=== PATIENT | female | born 1990 | race Two or more races ===

== ENCOUNTER 2024-05-04 17:04 | Emergency (ER) | payer MEDICAID ==
[~2024-05-04] VITALS: Ht 160 cm; Wt 92.1 kg
[2024-05-04 18:02] LABS: Basophils # (auto) 0 10 ^3/uL (0-0.2); Eosinophils # (auto) 0.2 10 ^3/uL (0-0.8); Mean Corpuscular Volume 75.7 fL (80.0-100.0); Nucleated Red Blood Cells % 0.1 %; Red Cell Distribution Width 15.9 % (11.8-14.3); White Blood Cell 8.3 10^3/uL (4.4-10.8)
[2024-05-04 18:05] LABS: Basophils % (auto) 0.5 % (0.0-2.0); Eosinophils % (auto) 2.3 % (0.0-7.0); Hemoglobin 11.5 g/dL (12.2-16.2); Lymphocytes # (auto) 2.5 10 ^3/uL (0.4-5.4); Lymphocytes % (auto) 29.8 % (10.0-50.0); Mean Corpuscular Hemoglobin 24.8 pg (28.0-32.0); Mean Corpuscular Hgb Conc. 32.8 g/dL (32.0-36.0); Monocytes # (auto) 0.6 10 ^3/uL (0-1.3); Monocytes % (auto) 6.8 % (0.0-12.0); Neutrophils % (auto) 60.6 % (37.0-80.0); Platelet Count (auto) 317 10^3/uL (140-450); Red Blood Cells 4.62 10^6/uL (4.0-5.20)
[2024-05-04 18:12] LABS: Urine Bacteria FEW /hpf (None Seen); Urine Blood Negative /uL (Negative); Urine Clarity Clear (Clear); Urine Color Light-Yellow (Yellow); Urine Protein, UAD Negative (Negative); Urine Specific Gravity 1.025 (1.001-1.035); Urine Urobilinogen Normal (Negative); Urine WBC 1 /hpf (0 - 5); Urine pH 5.5 (5.0-9.0)
[2024-05-04 18:16] LABS: Alanine Aminotransferase 23 U/L (7-40); Albumin 4.3 g/dL (3.2-4.8); Alkaline Phosphatase 90 U/L (46-116); Anion Gap 7 (5-15); Aspartate Aminotransferase 23 U/L (13-40); BUN/Creatinine Ratio 13.7 (10.0-20.0); Blood Urea Nitrogen 10 mg/dL (9-23); Calcium 9.6 mg/dL (8.7-10.4); Carbon Dioxide 23 mmol/L (20-31); Chloride 106 mmol/L (98-107); Glucose 105 mg/dL (74-106); Potassium 3.7 mmol/L (3.5-5.1); Sodium 136 mmol/L (136-145)
[2024-05-04 18:17] LABS: Bilirubin, Total 0.2 mg/dL (0.2-1.0); Total Protein 7.4 g/dL (5.7-8.2)
[2024-05-04 19:59] VITALS: BP 135/78; PULSE 78; RESP 18; TEMP 98.4; O2SAT 99
== END 2024-05-04 20:31 | disposition home or self-care (01) ==
LOC: ER 17:04
DX: O02.1 Missed abortion (principal); N93.8 Other specified abnormal uterine and vaginal bleeding; Z98.890 Other specified postprocedural states
CPT/HCPCS: 36415; 76801; 76817; 80053; 81001; 84702; 85025; 86850; 86900; 86901

== ENCOUNTER 2024-05-19 13:02 | Emergency (ER) | payer MEDICAID ==
[~2024-05-19] VITALS: Ht 160 cm; Wt 94.6 kg
--- NOTE | 2024-05-19 13:27 | ED.PDOC ---
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 Patient reports that she is currently 6 weeks , however, she started to experience vaginal bleeding with associated 7/10 suprapubic pain this morning. Patient relays that she is . Patient denies any vaginal discharge, dysuria, hematuria, dizziness, fever, or chills. Time Seen by MD: 13:23 Reviewed Notes: Nurses Notes, Medications, Allergies Allergies: Coded Allergies: Morphine (Verified Allergy, Unknown, 05/04/24) Information Source: Patient Timing: Hours Prehospital treatment: None Severity: Moderate Vaginal Discharge: None Vaginal Lesions: None Bleeding Quality: Bright Red Sexual Activity: Last Consensual [place]: Unknown Control: None History of: Current Symptoms of Possible : None Associated Signs and Symptoms: Vaginal Bleeding, Abdominal Pain Past Medical History PAST MEDICAL HISTORY: Denies Surgical History: Denies all surgeries SYSTEM SAFETY MANAGER History: No Pertinent SYSTEM SAFETY MANAGER History 3 Para 2 Family History Family History: Reviewed,noncontributory to illness Social History Smoker: Non-Smoker Alcohol: Denies ETOH Use Drugs: Denies Drug Use Lives In: Home Constitutional: denies: chills, diaphoresis, fatigue, fever, malaise, sweats, weakness, others EENTM: denies: blurred vision, double vision, ear bleeding, ear discharge, ear drainage, ear pain, ear ringing, eye pain, eye redness, hearing loss, mouth pain, mouth swelling, nasal discharge, nose bleeding, nose congestion, nose pain, photophobia, tearing, throat pain, throat swelling, voice changes, others Respiratory: denies: cough, hemoptysis, orthopnea, SOB at rest, shortness of breath, SOB with excertion, stridor, wheezing, others Cardiovascular: denies: chest pain, dizzy spells, diaphoresis, Dyspnea on exertion, edema, irregular heart beat, left arm pain, lightheadedness, palpitations, PND, syncope, others Gastrointestinal: reports: abdominal pain; denies: abdomen distended, blood streaked bowels, constipated, diarrhea, dysphagia, difficulty swallowing, hematemesis, melena, nausea, poor appetite, poor fluid intake, rectal bleeding, rectal pain, vomiting, others Genitourinary: reports: abnormal vagina bleeding, ; denies: burning, dyspareunia, dysuria, flank pain, frequency, hematuria, incontinence, pain, vagi na discharge, urgency, others Neurological: denies: dizziness, fainting, headache, left sided numbness, left sided weakness, numbness, paresthesia, pre-existing deficit, right sided numbness, right sided weakness, seizure, speech problems, tingling, tremors, weakness, others Musculoskeletal: denies: back pain, gout, joint pain, joint swelling, muscle pain, muscle stiffness, neck pain, others Integumetry: denies: bruises, change in color, change in hair/nails, dryness, laceration, lesions, lumps, rash, wounds, others Allergic/Immunocompromised: denies: Difficulty Healing, Frequent Infections, Hives, Itching, others Hematologic/Lymphatic: denies: anemia, blood clots, easy bleeding, easy bruising, swollen glands, others Endocrine: denies: excessive hunger, excessive sweating, excessive thirst, excessive urination, flushing, intolerance to cold, intolerance to heat, unexplained weight gain, unexplained weight loss, others Psychiatric: denies: anxiety, bipolar disorder, depression, hopeless, panic disorder, schizophrenia, sleepless, suicidal, others All Other Systems: Reviewed and Negative Physical Exam General Appearance: Moderate Distress, Normal HEENT: Normal ENT Inspection, PERRL/EOMI Neck: Full Range of Motion, Non-Tender, Normal, Normal Inspection Respiratory: Chest Non-Tender, Lungs Clear, No Accessory Muscle Use, No Respiratory Distress, Normal Breath Sounds Cardiovascular: No Edema, No JVD, No Murmur, No Gallop, Normal Peripheral Pulses, Regular Rate/Rhythm Breast Exam: Deferred Gastrointestinal: No Organomegaly, Non Tender, No Pulsatile Mass, Normal Bowel Sounds, Soft Genitalia: Deferred Pelvic: Deferred Rectal: Deferred Extremities: No calf tenderness, Normal capillary refill, Normal inspection, Normal range of motion, Non-tender, No pedal edema Musculoskeletal : Apperance: Normal 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 Was a procedure done?: No Differential Diagnosis (SYSTEM SAFETY MANAGER) Vaginal Bleeding: - Complete, - Incomplete, - Inevitable, - Missed, - Threatened X-Ray, Labs, Meds, VS Vital Signs Date Time Temp Pulse Resp B/P (MAP) Pulse Ox O2 Delivery O2 Flow Rate FiO2 05/19/24 13:29 98.6 98 16 122/74 (90) 99 Lab Test 05/19/24 15:20 05/19/24 13:51 Range/Units Urine Color Colorless Yellow Urine Clarity Clear Clear Urine pH 5.5 5.0-9.0 Urine Specific [place] 1.006 1.001-1.035 Urine Protein Negative Negative Urine Ketones Negative Negative Urine Blood Negative Negative /uL Urine Nitrite Negative Negative Urine Bilirubin Negative Negative Urine Urobilinogen Normal Negative mg/dL Urine Leukocyte Esterase Negative Negative /uL Urine RBC <1 0 - 4 /hpf Urine WBC <1 0 - 5 /hpf Urine Squamous Epithelial Cells Few <5 /hpf Urine Bacteria Few H None Seen /hpf Urine Glucose Normal Normal mg/dL Beta HCG, Quantitative 1296.4 H 1.5-4.2 mIU/mL Patient alert. Complaining of vaginal bleeding. Vitals stable. Answering all questions. She is . three. Explained to the patient. Was told to follow up with her OBGYN. Was told to follow up with her primary care physician. Was told to come back if there is any problem. OB US: Findings: 0.43 cm sonolucent area within the endometrium with questionable yolk sac visualized. No pole is visualized. Uterus measures 8.8 x 5.6 x 5 cm in size. Endometrial thickness of 12 mm. Cervical os appears closed. Right ovary measures 2.8 x 2.5 x 2.2 cm with 1.7 cm hypoechoic lesion. Left ovary measures 2.9 x 2.5 x 1.7 cm. Normal ovarian color Doppler flow bilateral ly. No evidence of free fluid in the cul-de-sac. Impression: Intrauterine 0.43 cm sonolucent area with questionable yolk sac. No pole is visualized. Recommend correlation with beta HCG and serial ultrasound as clinically indicated. 1.7 cm right ovarian hypoechoic region which may represent an endometrioma with other etiologies not excluded. Images Reviewed?: Images reviewed and evaluated by me Time of 1ST Reevaluation: 14:23 Reevaluation 1ST: Unchanged Patient Education/Counseling: Diagnosis, Treatment Family Education/Counseling: No Family Present Departure 1 Departure Time of Disposition: 13:43 Impression: Primary Impression: Vaginal bleeding during Disposition: HOME / SELF CARE / HOMELESS Condition: Good Discharged With: Self Critical Care Note Critical Care Time?: No Stability Stability form required: No Heart Score Heart Score: Heart Score Response (Comments) Value History N/A 0 EKG N/A 0 Age N/A 0 Risk Factors N/A 0 Troponin N/A 0 Total 0 I personally scribed for BISI GARCIA MD ([email or web address]) on 05/19/24 at 13:27. Electronically submitted by Angus Gomes ([email or web address]). I personally scribed for BISI GARCIA MD ([email or web address]) on 05/19/24 at 16:33. Electronically submitted by Angus Gomes ([email or web address]). BISI GARCIA MD May 19, 2024 13:27
--- NOTE | 2024-05-19 15:29 | DVH ---
Procedure: US OB ULTRASOUND COMP LESS 14WKS Study Date and Requested Time: 05/19/2024 02:37 PM Study Description: US OB ULTRASOUND COMP LESS 14WKS History: cramping Comparison: US OB ULTRASOUND COMP LESS 14WKS on DOS: 05/04/24 Technique: Multiple high resolution carter-scale images obtained of the uterus, fetus, and other gestat ional components with M-mode scanning for evaluation of heart rate. Findings: 0.43 cm sonolucent area within the endometrium with questionable yolk sac visualized. No pole i s visualized. Uterus measures 8.8 x 5.6 x 5 cm in size. Endometrial thickness of 12 mm. Cervical os appears closed. Right ovary measures 2.8 x 2.5 x 2.2 cm with 1.7 cm hypoechoic lesion. Left ovary measures 2.9 x 2.5 x 1.7 cm. Normal ovarian color Doppler flow bilaterally. No evidence of free fluid in the cul-de-sac. Impression: Intrauterine 0.43 cm sonolucent area with questionable yolk sac. No pole is visualized. Recomme nd correlation with beta HCG and serial ultrasound as clinically indicated. 1.7 cm right ovarian hypoechoic region which may represent an endometrioma with other etiologies not excluded.
[2024-05-19 15:37] LABS: Urine Bacteria FEW /hpf (None Seen); Urine Blood Negative /uL (Negative); Urine Clarity Clear (Clear); Urine Color Colorless (Yellow); Urine Protein, UAD Negative (Negative); Urine Specific Gravity 1.006 (1.001-1.035); Urine Urobilinogen Normal (Negative); Urine WBC <1 /hpf (0 - 5); Urine pH 5.5 (5.0-9.0)
[2024-05-20 02:22] VITALS: BP 114/64; PULSE 74; RESP 16; TEMP 98.2; O2SAT 100
== END 2024-05-20 02:40 | disposition home or self-care (01) ==
LOC: ER 13:02
DX: O20.9 Hemorrhage in early pregnancy, unspecified (principal); R10.2 Pelvic and perineal pain; Z3A.01 Less than 8 weeks gestation of pregnancy; Z88.5 Allergy status to narcotic agent
CPT/HCPCS: 36415; 76801; 76817; 81001; 84702

== ENCOUNTER 2024-06-16 23:53 | Emergency (ER) | payer MEDICAID ==
[~2024-06-16] VITALS: Ht 160 cm; Wt 93.9 kg
[2024-06-17 00:05] VITALS: BP 125/84; PULSE 111; RESP 18; O2SAT 100
--- NOTE | 2024-06-17 00:33 | ED.PDOC ---
History of Present Illness HPI Comments 33-year-old female who presents to the emergency department with lower abdominal pain that started yesterday. She had a positive test yesterday. Today she started spotting. She states the pain is 7/10, feels like menstrual cramps, worsened when she is working, improved when she is sitting or laying, does not radiate, has been intermittent. She denies associated trauma patient denies any significant past medical history. She is taking vitamins only. She has some nausea without vomiting. She is G3, P2 with no complications during previous pregnancies. Chief Complaint: Abdominal Pain Time Seen by MD: 00:11 Primary Care Provider: NONE Allergies: Coded Allergies: Morphine (Verified Allergy, Unknown, 05/04/24) Home Meds Active Scripts Cephalexin (KEFLEX CAPSULE) 250 Mg Cp, 1 CAP PO QID for 7 Days, #28 CAP Prov:BRYCE YUSUF MD 06/17/24 Mode of Arrival: Ambulatory Review of Systems: REVIEW OF SYSTEMS: No fever, no chills, or fatigue HEENT: No sore throat, no earache, no congestion, no neck pain. Cardiac: No chest pain. No palpitations. Lungs: No shortness of breath, no cough. GI: Nausea, no vomiting, no diarrhea, no constipation, abdominal pain : Positive vaginal bleeding, No dysuria, frequency, or urgency. No hematuria. Musculoskeletal: No joint pain , no joint swelling, no extremity edema. Skin: No rash, no itching. Neuro: No headache, no dizziness, no weakness Vital Signs Vital Signs Date Time Temp Pulse Resp B/P (MAP) Pulse Ox O2 Delivery O2 Flow Rate FiO2 06/17/24 00:05 99.3 111 18 125/84 (98) 100 Physical Exam General: Awake, alert and oriented. No acute distress. Skin: Skin in warm, dry and intact. Appropriate color for ethnicity. Nailbeds pink with no cyanosis. HEENT: The head is normocephalic and atraumatic. Conjunctivae are clear without exudates or hemorrhage. Sclera is non-icteric. EOM are intact. No signs of nystagmus. Eyelids are normal in appearance without swelling or lesions. Oral mucosa is pink and moist Neck: The neck is supple with normal range of motion. No JVD. Cardiac: Heart rate and rhythm are normal. No murmurs, gallops, or rubs are auscultated. Respiratory: No signs of respiratory distress. Lung sounds are clear in all lobes bilaterally without rales, ronchi, or wheezes. Abdominal: Abdomen is soft, positive lower abdominal tenderness-distention. No guarding or rigidity No CVA tenderness Extremities: Upper and lower extremities are atraumatic in appearance without deformity or edema. Neurological: The patient is awake, alert and oriented to person, place, and time with normal speech. Speech is clear. There is no facial asymmetry. Psychiatric: Appropriate mood and affect. Good judgement and insight. No visual or auditory hallucinations. Past Medical History PAST MEDICAL HISTORY: Denies Surgical History: Denies all surgeries AUTOMATION QA TESTER History: No Pertinent AUTOMATION QA TESTER History Family History Family History: Reviewed,noncontributory to illness Social History Smoker: Non-Smoker Alcohol: Denies ETOH Use Drugs: Denies Drug Use Lives In: Home Was a procedure done? Was a procedure done?: No Differential Dx Considerations may include: Differential diagnosis considered include ectopic , spontaneous , urinary tract infection, vaginal infection, normal , pelvic inflammatory disease, ovarian torsion, other, X-Ray, Labs, Meds, VS Vital Signs Date Time Temp Pulse Resp B/P (MAP) Pulse Ox O2 Delivery O2 Flow Rate FiO2 06/17/24 00:05 99.3 111 18 125/84 (98) 100 Lab Test 06/17/24 00:07 Range/Units Urine Color Colorless Yellow Urine Clarity Clear Clear Urine pH 5.0 5.0-9.0 Urine Specific [place] 1.012 1.001-1.035 Urine Protein Negative Negative Urine Ketones Negative Negative Urine Blood Negative Negative /uL Urine Nitrite Negative Negative Urine Bilirubin Negative Negative Urine Urobilinogen Normal Negative mg/dL Urine Leukocyte Esterase 1+ Negative /uL Urine RBC 3 0 - 4 /hpf Urine WBC 5 0 - 5 /hpf Urine Squamous Epithelial Cells Few <5 /hpf Urine Bacteria Few H None Seen /hpf Urine Glucose Normal Normal mg/dL Time of 1ST Reevaluation: 00:29 Reevaluation 1ST: N/A Patient Education/Counseling: Other (Patient eloped) Family Education/Counseling: No Family Present Departure 1 Departure Time of Disposition: 03:00 Impression: Primary Impression: Abdominal pain affecting Additional Impression: Eloped from emergency department Disposition: 07 LEFT AWOL/ELOPED Condition: Stable e-Prescriptions Cephalexin (KEFLEX CAPSULE) 250 Mg Cp 1 CAP PO QID for 7 Days, #28 CAP Prov: BRYCE YUSUF MD 06/17/24 Comments Rxulns-eilom-vegx-old female with pelvic cramping, spotting with a positive home test. She eloped from the emergency department prior to completing workup and re-evaluation. 06/17/24 19:24: Called and left voice mail for patient. Critical Care Note Critical Care Time?: No Stability Stability form required: No BRYCE YUSUF MD Jun 17, 2024 00:33
[2024-06-17 00:36] LABS: Urine Bacteria FEW /hpf (None Seen); Urine Blood Negative /uL (Negative); Urine Clarity Clear (Clear); Urine Color Colorless (Yellow); Urine Protein, UAD Negative (Negative); Urine Specific Gravity 1.012 (1.001-1.035); Urine Urobilinogen Normal (Negative); Urine WBC 5 /hpf (0 - 5)
[2024-06-17] MEDS ORDERED: CEPH250C PO (19:02)
== END 2024-06-17 07:31 | disposition home or self-care (01) ==
LOC: ER 06-17 00:01
DX: O99.619 Diseases of the digestive system complicating pregnancy, unspecified trimester (principal); K92.89 Other specified diseases of the digestive system; Z53.29 Procedure and treatment not carried out because of patient's decision for other reasons
CPT/HCPCS: 81001

== ENCOUNTER 2025-04-08 12:57 | Inpatient (IN) | payer MEDICAID ==
[~2025-04-08] VITALS: Ht 160 cm; Wt 99.4 kg
[~2025-04-08 12:57] MED LIST: CEPH250C PO
--- NOTE | 2025-04-08 13:33 | ECG ---
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
[2025-04-08 14:28] LABS: Urine Protein, UAD 1+ (Negative)
--- NOTE | 2025-04-08 14:31 | DVH ---
LIMITED OB ULTRASOUND > 14 WKS: HISTORY: 23 weeks, abdominal pain TECHNIQUE: Multiple real-time grayscale images of the gravid uterus with duplex Doppler color flow an d M-mode spectral analysis. TRANSDUCER: Transabdominal and transvaginal FINDINGS: IUP single live fetus at 24 weeks 2 days based on composite averages of the BPD, head circumference, abdominal circumference and femur length Estimated weight 624 grams heart rate 162 beats per minute MVP 7.2 cm Cervix measures 3.4 cm. Variable Presentation Posterior Placenta without previa or abruption. IMPRESSION: IUP single live fetus at 24 weeks 2 days AUA corresponding to an MARIEL of 07/27/2025
[2025-04-08 14:32] LABS: Hematocrit 33.6 % (36.0-46.0); Hemoglobin 11.4 g/dL (12.2-16.2); Mean Corpuscular Hemoglobin 28.4 pg (28.0-32.0); Mean Corpuscular Volume 83.8 fL (80.0-100.0); Nucleated Red Blood Cells % 0.0 %
[2025-04-08 14:39] LABS: Alanine Aminotransferase 31 U/L (7-40); Albumin 4.0 g/dL (3.2-4.8); Alkaline Phosphatase 81 U/L (46-116); Anion Gap 13 (5-15); Bilirubin, Total 0.6 mg/dL (0.2-1.0); Calcium 9.2 mg/dL (8.7-10.4); Carbon Dioxide 20 mmol/L (20-31); Chloride 103 mmol/L (98-107); Glucose 81 mg/dL (74-106); Potassium 3.6 mmol/L (3.5-5.1); Total Protein 7.3 g/dL (5.7-8.2)
[2025-04-08 14:42] LABS: BUN/Creatinine Ratio 9.4 (10.0-20.0); Blood Urea Nitrogen < 5 mg/dL (9-23); Magnesium 1.5 mg/dL (1.6-2.6); Sodium 136 mmol/L (136-145)
[2025-04-08 14:42] LABS: Amphetamine Screen, Urine Neg (NEGATIVE); Barbiturate Scree,Urine Neg (NEGATIVE); Benzodiazephine Screen, Urine Neg (NEGATIVE); Opiate Scree,Urine Neg (NEGATIVE); Phencyclidine Screen, Urine Neg (NEGATIVE)
[2025-04-08 14:43] LABS: Thyroid Stimulating Hormone 0.45 uIU/mL (0.55-4.78)
[2025-04-08 14:43] LABS: Cannabinoid Screen, Urine Neg (NEGATIVE); Cocaine Screen, Urine Neg (NEGATIVE)
[2025-04-08 14:54] LABS: Beta HCG, Quantitative 9928.5 mIU/mL (1.5-4.2)
--- NOTE | 2025-04-08 15:05 | ED.PDOC ---
NIGHT TIME BABYSITTER HPI Comments HPI: Siva 34 y.o female presents to the ED for a chief complaint of body chills associated with abdominal and back pain that started this morning. Patient also reports having one episode of vomiting s/p eating described as food particles and denies any hematemesis. Patient is 23 weeks and went to see NIGHT TIME BABYSITTER yesterday which she states having a normal exam. Patient described abdominal pain as a burning sensation that diffuses across abdomen and is constant. 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 She denies any vaginal bleeding, fever, chills, diarrhea. Patient has not taken anything for the pain. She was seen at this ED on 03/25/25 for similar c/o, diagnosed with acute cystitis and prescribed Keflex 250mg BID x 7 days in which she finished course, reporting symptoms then resolved. Initial Vitals BP: 141/78 HR: 141 RR: 19 O2: 97% TRA Temp: 98.5 F Past Medical History: Denies Past Surgical History: Denies Social History: Denies ETOH, smoking, and drug use. Medications: prenatals Allergies: Denies siva: HPI: Poor Historian. REVIEW OF SYSTEMS: CONSTITUTIONAL: Denies acute: fever, diaphoresis, generalized weakness. HEAD: Denies acute: headache, photophobia Eyes: Denies acute: Double vision, vision loss, eye pain, eye discharge. EARS: Denies acute: tinnitus, hearing loss, ear discharge, ear pain, THROAT: Denies acute: sore throat, swelling, difficulty swallowing , pain with swallowing, change in voice. NECK: Denies acute: neck pain, neck swelling, stiff neck. HEART: Denies acute : chest pain, palpitations, LUNGS: Denies acute: SOB, wheezing, cough, hemoptysis ABDOMEN: Denies acute: diarrhea, melena , hematemesis, hematochezia SKIN: Denies acute: rash, redness, lesions, itchiness. EXTREMITIES: Denies acute: calf pain, numbness, tingling, weakness, denies pain in extremity. Denies acute: Low back pain. Neuro: Denies acute: focal neurological deficit, motor or sensory focal neurological deficit, tremors, seizure like activity, confusion, dizziness, change in mental status, loss of bowel or bladder function, cauda equina like symptoms. : Denies acute: dysuria, hematuria, flank pain, increase in urinary frequency. PSYCH: Denies acute: hallucination, suicidal ideation, homicidal ideation. FEMALE: Denies acute: abnormal vaginal bleeding, foul odor, unusual discharge. PHYSICAL EXAM: General: ----mild----acute distress, awake and alert. Head: normocephalic, atraumatic. Neck: supple, trachea is midline, no swelling. Throat: Normal phonation. Eyes:, no erythema, no purulent discharge, no proptosis, no icterus. Heart: regular rate, regular rhythm, no significant murmur appreciated. Lungs: no apparent respiratory distress, Able to speak in full sentences. No wheezing, no rhonchi, no crackles. No stridors Clear to auscultation bilaterally. Abdomen: non tender to palpation, non distended, soft, no guarding, no rebound, + bowel sounds. Neuro: Awake, Alert, oriented to name, self, situation, follows commands GCS=15. Speech is normal. Skin: no petechia, no purpura, no cyanosis, non-pale, not jaundice. Lower extremities: --no - Pitting edema no deformity, no focal swelling, no calf TTP. Makes eye contact. moves all four extremities. Face: no apparent facial droop. Mild right CVA tenderness to percussion Ambulating in the ED independently. ED COURSE: DISCLAIMER: This medical document was created using an electronic medical record system with voice recognition software and computerized dictation system. Although this document has been carefully reviewed, there might still be some phonetic and typographical errors. Occasional wrong-word or "sound-alike" substitutions may have occurred due to the inherent limitations of voice recognition software. These areas are purely typographical due to imperfections of the software programs and do not reflect any compromise in the patient's medical care. Please read the chart carefully and recognize, using context, where these substitutions have occurred. Chief Complaint: Abdominal Pain Time Seen by MD: 14:41 Reviewed Notes: Allergies Allergies: Coded Allergies: Morphine (Verified Allergy, Unknown, 05/04/24) Home Meds Active Scripts Cephalexin (KEFLEX CAPSULE) 250 Mg Cp, 1 CAP PO QID for 7 Days, #28 CAP Prov:MINTAH,CHAILLE A MD 06/17/24 Information Source: Patient Past Medical History PAST MEDICAL HISTORY: Denies Surgical History: Denies all surgeries SIGNALING PROJECT ENGINEER History: No Pertinent SIGNALING PROJECT ENGINEER History Family History Family History: Reviewed,noncontributory to illness Social History Smoker: Non-Smoker Alcohol: Denies ETOH Use Drugs: Denies Drug Use Lives In: Home Physical Exam General Appearance: Other (a) HEENT: Other (a) Neck: Other (a) Respiratory: Other (a) Cardiovascular: Other (a) Breast Exam: Other (a) Gastrointestinal: Other (a) Genitalia: Other (a) Pelvic: Other (a) Rectal: Other (a) Extremities: Other (a) Neurologic: Other Cerebellar Function: Other (a) Reflexes: Other Skin: Other (a) Lymphatic: Other (a) Was a procedure done? Was a procedure done?: No Differential Diagnosis (SIGNALING PROJECT ENGINEER) Vaginal Bleeding: N/A Vaginal Discharge: UTI, Vaginitis - Herpes, Vaginitis - Trichomonas X-Ray, Labs, Meds, VS Vital Signs Date Time Temp Pulse Resp B/P (MAP) Pulse Ox O2 Delivery O2 Flow Rate FiO2 04/08/25 18:25 100.9 04/08/25 17:50 100.9 124 20 116/66 (83) 98 100.9 04/08/25 17:50 124 20 98 Room Air 04/08/25 16:42 99.9 128 20 107/67 (80) 98 99.9 04/08/25 13:18 138 04/08/25 13:08 98.5 141 19 141/78 97 98.5 Lab Test 04/08/25 16:50 04/08/25 14:14 04/08/25 14:08 Range/Units Beta HCG, Quantitative 9524.4 H 9928.5 H 1.5-4.2 mIU/mL White Blood Count 11.6 H 4.4-10.8 10^3/uL Red Blood Count 4.00 4.0-5.20 10^6/uL Hemoglobin 11.4 L 12.2-16.2 g/dL Hematocrit 33.6 L 36.0-46.0 % Mean Corpuscular Volume 83.8 80.0-100.0 fL Mean Corpuscular Hemoglobin 28.4 28.0-32.0 pg Mean Corpuscular Hemoglobin Concent 33.8 32.0-36.0 g/dL Red Cell Distribution Width 14.1 11.8-14.3 % Platelet Count 338 140-450 10^3/uL Mean Platelet Volume 7.5 6.9-10.8 fL Neutrophils (%) (Auto) 86.4 H 37.0-80.0 % Lymphocytes (%) (Auto) 5.0 L 10.0-50.0 % Monocytes (%) (Auto) 8.2 0.0-12.0 % Eosinophils (%) (Auto) 0.1 0.0-7.0 % Basophils (%) (Auto) 0.3 0.0-2.0 % Neutrophils # (Auto) 10.0 H 1.6-8.6 10 ^3/uL Lymphocytes # (Auto) 0.6 0.4-5.4 10 ^3/uL Monocytes # (Auto) 1.0 0-1.3 10 ^3/uL Eosinophils # (Auto) 0 0-0.8 10 ^3/uL Basophils # (Auto) 0 0-0.2 10 ^3/uL Nucleated Red Blood Cells 0.0 % Sodium Level 136 136-145 mmol/L Potassium Level 3.6 3.5-5.1 mmol/L Chloride Level 103 98-107 mmol/L Carbon Dioxide Level 20 20-31 mmol/L Anion Gap 13 5-15 Blood Urea Nitrogen < 5 L 9-23 mg/dL Creatinine 0.53 L 0.550-1.02 mg/dL Glomerular Filtration Rate Calc 124 >90 mL/min BUN/Creatinine Ratio 9.4 L 10.0-20.0 Serum Glucose 81 74-106 mg/dL Calcium Level 9.2 8.7-10.4 mg/dL Magnesium Level 1.5 L 1.6-2.6 mg/dL Total Bilirubin 0.6 0.2-1.0 mg/dL Aspartate Amino Transferase (AST) 18 13-40 U/L Alanine Aminotransferase (ALT) 31 7-40 U/L Alkaline Phosphatase 81 46-116 U/L Total Protein 7.3 5.7-8.2 g/dL Albumin 4.0 3.2-4.8 g/dL Thyroid Stimulating Hormone (TSH) 0.45 L 0.55-4.78 uIU/mL Urine Color Colorless Yellow Urine Clarity Turbid H Clear Urine pH 7.0 5.0-9.0 Urine Specific [place] 1.015 1.001-1.035 Urine Protein 1+ H Negative Urine Ketones Negative Negative Urine Blood Trace H Negative /uL Urine Nitrite 2+ H Negative Urine Bilirubin Negative Negative Urine Urobilinogen Normal Negative mg/dL Urine Leukocyte Esterase 3+ Negative /uL Urine RBC 7 0 - 4 /hpf Urine Microscopic WBC 126 H 0-5 /HPF Urine Squamous Epithelial Cells Few <5 /hpf Urine Bacteria Few H None Seen /hpf Urine Glucose Normal Normal mg/dL Urine Opiates Screen Neg NEGATIVE Urine Fentanyl Screen Neg NEGATIVE Urine Barbiturates Screen Neg NEGATIVE Urine Phencyclidine Screen Neg NEGATIVE Urine Amphetamines Screen Neg NEGATIVE Urine Benzodiazepines Screen Neg NEGATIVE Urine Cocaine Screen Neg NEGATIVE Urine Cannabinoids Screen Neg NEGATIVE Current Medications Medications (Trade) Dose Ordered Sig/Gisela Route Start Time Stop Time Status Last Admin Ceftriaxone Sodium 50 ml @ 100 mls/hr ONCE ONCE IV 04/08/25 14:45 04/08/25 15:14 DC 04/08/25 14:45 Sodium Chloride 1,000 ml @ 1,000 mls/hr Q1H ONCE IV 04/08/25 18:15 04/08/25 19:14 04/08/25 18:08 Acetaminophen (Tylenol Tablet) 650 mg ONCE ONCE PO 04/08/25 18:15 04/08/25 18:16 DC 04/08/25 18:25 [place] [id number] Ph: [phone] DIAGNOSTIC IMAGING Diagnostic Imaging Report : [id number] Signed PATIENT: ETHAN ARAIZA ACCT: [id number] UNIT: [id number] : 1990 LOC: ER ROOM / BED: / AGE / SEX: 34 / F ADM STATUS: REG ER SERVICE 1322 ORDERING PHYSICIAN: ABDI VILLAGRAN DO PROCEDURE(s): OBUS - OB ULTRASOUND COMP GTR 14 WKS REASON: 23 weeks, abdominal pain ORDER NUMBER(s): [id number], ACCESSION NUMBER(s): [id number] LIMITED OB ULTRASOUND > 14 WKS: HISTORY: 23 weeks, abdominal pain TECHNIQUE: Multiple real-time grayscale images of the gravid uterus with duplex Doppler color flow and M-mode spectral analysis. TRANSDUCER: Transabdominal and transvaginal FINDINGS: IUP single live fetus at 24 weeks 2 days based on composite averages of the BPD, head circumference, abdominal circumference and femur length Estimated weight 624 grams heart rate 162 beats per minute MVP 7.2 cm Cervix measures 3.4 cm. Variable Presentation Posterior Placenta without previa or abruption. IMPRESSION: IUP single live fetus at 24 weeks 2 days AUA corresponding to an MARIEL of 07/27/2025 ATED BY: KIRK SULLIVAN MD DICTATED DATE/TIME: 04/08/25 142 SIGNED BY: KIRK SULLIVAN MD SIGNED DATE/TIME: 04/08/25 1429 CC: Time of 1ST Reevaluation: 15:08 Reevaluation 1ST: Unchanged Time of 2ND Reevaluation: 18:09 (The case was discussed with the OB Gyne team team (HPI, physical exam, labs and diagnostic tests that were available at the time of disposition, ED course, treatment plan) on the phone. They agreed with our management and recommend admitting the patient to the medicine team and they will follow in consult drTamy--- dre. ) Patient Education/Counseling: Diagnosis, Treatment Family Education/Counseling: No Family Present Comments MDM: patient presented with the above HPI.--fever flank pain abdominal pain in ----workup was initiated. patient was found with the above mentioned diagnosis. the following medications were ordered: please refer to order lists of meds and tests obtained by myself Dr. Villagran. Patient ED course and VS have been stabilized. Patient has been reassessed in the ED and remained in a stable condition. Pertinent incidental findings were discussed with the patient and/or family. Patient/family voices understanding and is agreeable with plan. Patient has been observed in the ED adequate length of time to insure improvement/stability. Escalation of care considered: Consideration of escalation to observation or admission OB Gyne was consulted. Patient was ADMITTED to the medicine team for further evaluation and treatment of their presentation. All the reports of any imaging studies that were ordered by myself were reviewed by myself. Departure 1 Departure Time of Disposition: 15:14 Impression: Primary Impression: UTI in Additional Impressions: Nausea and vomiting during Thyroid disease Pyelonephritis affecting Disposition: 09 ADMITTED INPATIENT Condition: Stable Additional Instructions: Additional instructions: Please read all instructions provided in this packet carefully. You MUST follow-up with your primary care/family doctor in 1 to 2 days. If you are unable to see your primary care/family doctor, please return to our emergency room for re-assessment and re-evaluation in 1 to 2 days. Return to the emergency room here in our facility or to the nearest ER [facility] if your symptoms change or worsen. CONSULTATIONS: you MUST Follow-up for consultation as soon as possible with: --OB Gyne doctor in 1-2 days. Please call for appointment. You MUST call the consultants office yourself to make an appointment. You may need to arrange that through your insurance and/or your primary/family doctor. If you are unable to see the mobile sales consultant in 1 to 2 days, you must return to our emergency room (or any other ER of your choice) for re-assessment and re- evaluation. Adequate fluid hydration. Although you have been discharged from the Emergency Department, this does not mean that you have a "clean bill of health". No definitive diagnosis for your symptoms has been made today. It is possible that you are in the process of developing a serious illness. This is why you must return to the ED without fail if any new or worsening symptoms develop. Absolute pelvic rest. Avoid NSAIDs. Below is a copy of your radiological report for follow up: [place] [id number] Ph: [phone] DIAGNOSTIC IMAGING Diagnostic Imaging Report : [id number] Signed PATIENT: ETHAN ARAIZA ACCT: [id number] UNIT: [id number] : 1990 LOC: ER ROOM / BED: / AGE / SEX: 34 / F ADM STATUS: REG ER SERVICE 0000 ORDERING PHYSICIAN: ABDI VILLAGRAN DO PROCEDURE(s): OBTVG - OB TRANS VAGINAL US REASON: PAIN ORDER NUMBER(s): [id number], ACCESSION NUMBER(s): [id number] LIMITED OB ULTRASOUND > 14 WKS: HISTORY: 23 weeks, abdominal pain TECHNIQUE: Multiple real-time grayscale images of the gravid uterus with duplex Doppler color flow and M-mode spectral analysis. TRANSDUCER: Transabdominal and transvaginal FINDINGS: IUP single live fetus at 24 weeks 2 days based on composite averages of the BPD, head circumference, abdominal circumference and femur length Estimated weight 624 grams heart rate 162 beats per minute MVP 7.2 cm Cervix measures 3.4 cm. Variable Presentation Posterior Placenta without previa or abruption. IMPRESSION: IUP single live fetus at 24 weeks 2 days AUA corresponding to an MARIEL of 07/27/2025 ATED BY: KIRK SULLIVAN MD DICTATED DATE/TIME: 04/08/25 142 SIGNED BY: KIRK SULLIVAN MD SIGNED DATE/TIME: 04/08/251428 CC: Discharged With: Self Critical Care Note Critical Care Time?: Yes (45 min-critical care time only) Stability Stability form required: No Heart Score Heart Score: Heart Score Response (Comments) Value History N/A 0 EKG N/A 0 Age N/A 0 Risk Factors N/A 0 Troponin N/A 0 Total 0 I personally scribed for ABDI VILLAGRAN DO ([email or web address]) on 04/08/25 at 15:05. Electronically submitted by Teresa Bradley ([facility]). I personally scribed for ABDI VILLAGRAN DO ([email or web address]) on 04/08/25 at 15:08. Electronically submitted by Teresa Bradley ([facility]). I personally scribed for ABDI VILLAGRAN DO ([email or web address]) on 04/08/25 at 15:17. Electronically submitted by Teresa Bradley ([facility]). I personally scribed for ABDI VILLAGRAN J DO ([email or web address]) on 04/08/25 at 17:59. Electronically submitted by Teresa Bradley ([facility]). I personally scribed for ABDI VILLAGRAN DO ([email or web address]) on 04/08/25 at 18:12. Electronically submitted by Teresa Bradley ([facility]). ABDI VILLAGRAN DO Apr 08, 2025 15:05
[2025-04-08] MEDS: SODIUM CHLORIDE 0.9% 500 ML IV ONE (15:30)
[2025-04-08] MEDS: SODIUM CHLORIDE 0.9% 1,000 ML IV ONE (18:08)
[2025-04-08] MEDS: ACETAMINOPHEN 325 MG TAB PO ONE (18:25)
[2025-04-08] MEDS ORDERED: ACETAMINOPHEN 325 MG TAB PO PRN (19:15)
[2025-04-08] MEDS ORDERED: ONDANSETRON HCL 4 MG/2 ML VIAL IV PRN (19:15)
[2025-04-08] MEDS ORDERED: DOCUSATE SOD 100 MG CAP PO PRN (19:15)
--- NOTE | 2025-04-08 19:43 | DVHHP2 ---
History of Present Illness Reason for Visit: UTI in History of Present Illness The patient is a 34-year-old female AB1 who presented to [facility] ED with complaint of abdominal pain. Patient reports she has been experiencing abdominal pain radiating to her back, associated with body chills, nausea, episode of vomiting, getting worse that prompted this visit. Patient was seen at this ED on 03/25/25 for similar complaint, diagnosed with acute cystitis and prescribed Keflex 250mg BID x 7 days in which she finished course, reporting symptoms then resolved. Patient was seen and evaluated in the ED, laboratory data shows WBC 11.6, hemoglobin 11.4, hematocrit 33.6, platelets 338, sodium 136, potassium 3.6, BUN 5, creatinine 0.53, GFR 124, glucose 81, calcium 9.2, magnesium 1.5, TSH 0.45, hCG 9524.4, blood pressure 116/66, heart rate 124, temperature 100.9 F, O2 saturation 98% on room air. Obstetric ultrasound rev ealing IUP single live fetus at 24 weeks 2 days AUA corresponding to an MARIEL of July 27, 2025. Please see medication orders section in the computer. On my assessment, patient denied chest pain, no headache, no dizziness, no diaphoresis, no shortness of breaths, no abdominal pain at this moment, no diarrhea, nausea, vomiting, fever, or chills. Patient was admitted for further evaluation and medical management. Past Medical History Denies past medical history Past Surgical History Denies all surgeries Family History Reviewed, noncontributory to the management of this case. Past Social History The patient lives at home, denies smoking, alcohol or illicit drugs abuse. Review of Systems Constitutional: Yes: Chills; No: Fever, Sweats, Weakness, Malaise, Other Eyes: No: Pain, Vision change, Conjunctivae inflammation, Eyelid inflammation, Other, Redness ENT: No: Ear pain, Ear discharge, Nose pain, Nose discharge, Nose congestion, Mouth pain, Mouth swelling, Throat pain, Throat swelling, Other Respiratory: No: Cough, Dry, Shortness of breath, SOB with excertion, Wheezing, Hemoptysis, Pleuritic Pain, Sputum, Wheezing, Other Cardiovascular: No: Chest Pain, Palpitations, Orthopnea, Paroxysmal Noc. Dyspnea, Edema, Lt Headedness, Other Gastrointestinal: Nausea, Vomiting, Abdominal Pain; No: Diarrhea, Constipation, Melena, Hematochezia, Other Genitourinary: No Dysuria, No Frequency, No Incontinence, No Hematuria, No Retention, No Other Musculoskeletal: No: other, neck pain, shoulder pain, arm pain, back pain, hand pain, leg pain, foot pain Skin: No: Rash, Lesions, Jaundice, Bruising, Other Neurological: No: Weakness, Numbness, Incoordination, Change in speech, Confusion, Seizures, Other Allergies: Coded Allergies: Morphine (Verified Allergy, Unknown, 05/04/24) Medications Current Medications Medications Dose Ordered Sig/Gisela Route Start Time Stop Time Status Last Admin Dose Admin Ceftriaxone Sodium 50 ml @ 100 mls/hr DAILY@09 IV 04/09/25 09:00 UNV Sodium Chloride 1,000 ml @ 60 mls/hr [id number] IV 04/08/25 19:15 Ondansetron HCl 4 mg Q4HP PRN IV 04/08/25 19:15 UNV Docusate Sodium 100 mg BIDPRN PRN PO 04/08/25 19:15 UNV Acetaminophen 650 mg Q6HP PRN PO 04/08/25 19:15 UNV Exam Vital Signs Vital Signs Date Time Temp Pulse Resp B/P (MAP) Pulse Ox O2 Delivery O2 Flow Rate FiO2 04/08/25 19:21 98.6 119 20 122/70 (87) 99 98.6 04/08/25 17:50 Room Air General Appearance: Alert, Oriented X3, Cooperative, No acute distress HEENT: Atraumatic, PERRLA, EOMI, Mucous membr. moist/pink Respiratory: Clear to auscultation, Normal air movement Cardiovascular: Regular rate, Normal S1, Normal S2, No murmurs Abdominal: Normal bowel sounds, Soft, No tenderness, No hepatospenomegaly, No masses Extremities: No clubbing, No cyanosis, No edema, Normal pulses, No tenderness/swelling Skin: No rashes, No breakdown, No significant lesion Neuro: Normal gait, Normal speech, Strength at 5/5 X4 ext, Normal tone, Sensati on intact, Cranial nerves 3-12 NL, Reflexes 2+ Psych/Mental Status: Mental status NL, Mood NL Labs/Xrays Labs Test 04/08/25 16:50 04/08/25 14:14 04/08/25 14:08 Range/Units Beta HCG, Quantitative 9524.4 H 1.5-4.2 mIU/mL White Blood Count 11.6 H 4.4-10.8 10^3/uL Red Blood Count 4.00 4.0-5.20 10^6/uL Hemoglobin 11.4 L 12.2-16.2 g/dL Hematocrit 33.6 L 36.0-46.0 % Mean Corpuscular Volume 83.8 80.0-100.0 fL Mean Corpuscular Hemoglobin 28.4 28.0-32.0 pg Mean Corpuscular Hemoglobin Concent 33.8 32.0-36.0 g/dL Red Cell Distribution Width 14.1 11.8-14.3 % Platelet Count 338 140-450 10^3/uL Mean Platelet Volume 7.5 6.9-10.8 fL Neutrophils (%) (Auto) 86.4 H 37.0-80.0 % Lymphocytes (%) (Auto) 5.0 L 10.0-50.0 % Monocytes (%) (Auto) 8.2 0.0-12.0 % Eosinophils (%) (Auto) 0.1 0.0-7.0 % Basophils (%) (Auto) 0.3 0.0-2.0 % Neutrophils # (Auto) 10.0 H 1.6-8.6 10 ^3/uL Lymphocytes # (Auto) 0.6 0.4-5.4 10 ^3/uL Monocytes # (Auto) 1.0 0-1.3 10 ^3/uL Eosinophils # (Auto) 0 0-0.8 10 ^3/uL Basophils # (Auto) 0 0-0.2 10 ^3/uL Nucleated Red Blood Cells 0.0 % Sodium Level 136 136-145 mmol/L Potassium Level 3.6 3.5-5.1 mmol/L Chloride Level 103 98-107 mmol/L Carbon Dioxide Level 20 20-31 mmol/L Anion Gap 13 5-15 Blood Urea Nitrogen < 5 L 9-23 mg/dL Creatinine 0.53 L 0.550-1.02 mg/dL Glomerular Filtration Rate Calc 124 >90 mL/min BUN/Creatinine Ratio 9.4 L 10.0-20.0 Serum Glucose 81 74-106 mg/dL Calcium Level 9.2 8.7-10.4 mg/dL Magnesium Level 1.5 L 1.6-2.6 mg/dL Total Bilirubin 0.6 0.2-1.0 mg/dL Aspartate Amino Transferase (AST) 18 13-40 U/L Alanine Aminotransferase (ALT) 31 7-40 U/L Alkaline Phosphatase 81 46-116 U/L Total Protein 7.3 5.7-8.2 g/dL Albumin 4.0 3.2-4.8 g/dL Thyroid Stimulating Hormone (TSH) 0.45 L 0.55-4.78 uIU/mL Urine Color Colorless Yellow Urine Clarity Turbid H Clear Urine pH 7.0 5.0-9.0 Urine Specific [place] 1.015 1.001-1.035 Urine Protein 1+ H Negative Urine Ketones Negative Negative Urine Blood Trace H Negative /uL Urine Nitrite 2+ H Negative Urine Bilirubin Negative Negative Urine Urobilinogen Normal Negative mg/dL Urine Leukocyte Esterase 3+ Negative /uL Urine RBC 7 0 - 4 /hpf Urine Microscopic WBC 126 H 0-5 /HPF Urine Squamous Epithelial Cells Few <5 /hpf Urine Bacteria Few H None Seen /hpf Urine Glucose Normal Normal mg/dL Urine Opiates Screen Neg NEGATIVE Urine Fentanyl Screen Neg NEGATIVE Urine Barbiturates Screen Neg NEGATIVE Urine Phencyclidine Screen Neg NEGATIVE Urine Amphetamines Screen Neg NEGATIVE Urine Benzodiazepines Screen Neg NEGATIVE Urine Cocaine Screen Neg NEGATIVE Urine Cannabinoids Screen Neg NEGATIVE PATIENT: ETHAN ARAIZA ACCT: [id number] UNIT: [id number] : 1990 LOC: ER ROOM / BED: / AGE / SEX: 34 / F ADM STATUS: REG ER SERVICE 0000 ORDERING PHYSICIAN: ABDI VILLAGRAN DO PROCEDURE(s): OBTVG - OB TRANS VAGINAL US REASON: PAIN ORDER NUMBER(s): [id number], ACCESSION NUMBER(s): [id number] LIMITED OB ULTRASOUND > 14 WKS: HISTORY: 23 weeks, abdominal pain TECHNIQUE: Multiple real-time grayscale images of the gravid uterus with duplex Doppler color flow and M-mode spectral analysis. TRANSDUCER: Transabdominal and transvaginal FINDINGS: IUP single live fetus at 24 weeks 2 days based on composite averages of the BPD, head circumference, abdominal circumference and femur length Estimated weight 624 grams heart rate 162 beats per minute MVP 7.2 cm Cervix measures 3.4 cm. Variable Presentation Posterior Placenta without previa or abruption. IMPRESSION: IUP single live fetus at 24 weeks 2 days AUA corresponding to an MARIEL of 07/27/2025 ORDERING PHYSICIAN: ABDI VILLAGRAN DO PROCEDURE(s): OBUS - OB ULTRASOUND COMP GTR 14 WKS REASON: 23 weeks, abdominal pain ORDER NUMBER(s): [id number], ACCESSION NUMBER(s): [id number] LIMITED OB ULTRASOUND > 14 WKS: HISTORY: 23 weeks, abdominal pain TECHNIQUE: Multiple real-time grayscale images of the gravid uterus with duplex Doppler color flow and M-mode spectral analysis. TRANSDUCER: Transabdominal and transvaginal FINDINGS: IUP single live fetus at 24 weeks 2 days based on composite averages of the BPD, head circumference, abdominal circumference and femur length Estimated weight 624 grams heart rate 162 beats per minute MVP 7.2 cm Cervix measures 3.4 cm. Variable Presentation Posterior Placenta without previa or abruption. IMPRESSION: IUP single live fetus at 24 weeks 2 days AUA corresponding to an MRAIEL of 07/27/2025 SEPSIS Sepsis Screen Date sepsis recognized/suspect: Apr 08, 2025 Time Sepsis recognized/suspect: 1751 Recent Procedure: No On Antibiotic Therapy: No Respiratory Rate >20: No Heart Rate >90: Yes Temp<36 C (96.8 F) or >38.3 C: Yes SBP <90 or MAP <65 mmHG: No New Acute Mental Status Change: No Is the patient on CPAP, BIPAP,: No Physician Orders Ob Ultrasound Comp Gtr 14 Wks (04/08/25 13:22) Ob Trans Vaginal Us (04/08/25 ) Ceftriaxone 1gm/50ml (Rocephin) (04/09/25 09:00) Allergies (04/08/25 19:04) Code Status (04/08/25 19:04) Sodium Chloride 0.9% (04/08/25 19:15) Oxygen Per Hour (04/08/25 19:04) Ondansetron Hcl (Zofran) (04/08/25 19:15) Docusate Sodium Capsule (Colace Capsule) (04/08/25 19:15) Fall Risk Precautions In Place QSHIFT (04/08/25 19:04) Complete Blood Count (04/09/25 04:00) Comprehensive Metabolic Panel (04/09/25 04:00) Condition: Serious (04/08/25 19:04) Acetaminophen Tablet (Tylenol Tablet) (04/08/25 19:15) Clear Liq Diet (04/09/25 Breakfast) Maintain Bed Rest (04/08/25 19:04) Sequential Compression Device (04/08/25 ) Urine Bacterial Culture (04/08/25 19:04) Free T3 (04/08/25 19:04) Free T4 (Free Thyroxine) (04/08/25 19:04) * Coordinator Of Online Programs Consultation (04/08/25 19:04) Magnesium Sulfate 1gm/100ml (04/08/25 19:30) Vital Signs Date Time Temp Pulse Resp B/P (MAP) Pulse Ox O2 Delivery O2 Flow Rate FiO2 04/08/25 19:21 98.6 119 20 122/70 (87) 99 98.6 04/08/25 19:20 98.6 04/08/25 18:25 100.9 04/08/25 17:50 100.9 124 20 116/66 (83) 98 100.9 04/08/25 17:50 124 20 98 Room Air 04/08/25 16:42 99.9 128 20 107/67 (80) 98 99.9 04/08/25 13:18 138 04/08/25 13:08 98.5 141 19 141/78 97 98.5 Laboratory Tests Test 04/08/25 14:14 White Blood Count 11.6 10^3/uL (4.4-10.8) H Medications Medications Dose Ordered Sig/Gisela Route Start Time Stop Time Status Last Admin Dose Admin Acetaminophen 650 mg ONCE ONCE PO 04/08/25 18:15 04/08/25 18:16 DC 04/08/25 18:25 650 MG Ceftriaxone Sodium 50 ml @ 100 mls/hr ONCE ONCE IV 04/08/25 14:45 04/08/25 15:14 DC 04/08/25 14:45 100 MLS/HR Sodium Chloride 1,000 ml @ 1,000 mls/hr Q1H ONCE IV 04/08/25 18:15 04/08/25 19:14 DC 04/08/25 18:08 1,000 MLS/HR Assessment/Plan Assessment/Plan UTI in Abdominal pain Fever, unspecified Thyroid disease Nausea and vomiting during Pyelonephritis affecting Plan 1. Admit to telemetry unit 2. Breathing treatment 3. Pain control management 4. IV antibiotic management 5. Management of fluids and electrolytes 6. Consultation for OBGYN 7. Diagnostic test obstetric ultrasound 8. DVT prophylaxis on SCDs 9. Repeat labs CBC, CMP in a.m. 10.Home medication reviewed and reconciled 11.Continue with current medical management 12. Treatment plan discussed with patient and RN. Patient verbalized understanding. Plan discussed with: Patient, Other (RN) My Orders Orders - JAD WATKINS DNP Procedure Category Date Status Time Ceftriaxone 1gm/50ml PHA 04/09/25 Logged (Rocephin) 09:00 Allergies CELINA 04/08/25 In Process 19:04 Code Status CODE 04/08/25 Transmitted 19:04 Sodium Chloride 0.9% PHA 04/08/25 In Process 19:15 Oxygen Per Hour RT 04/08/25 Transmitted 19:04 Ondansetron Hcl PHA 04/08/25 Logged (Zofran) 19:15 Docusate Sodium PHA 04/08/25 Logged Capsule (Colace 19:15 Fall Risk Precautions CELINA 04/08/[address] 19:04 Complete Blood Count LAB 04/09/25 Verified 04:00 Comprehensive LAB 04/09/25 Verified Metabolic Panel 04:00 Condition: Serious CELINA 04/08/25 In Process 19:04 Acetaminophen Tablet PHA 04/08/25 Logged (Tylenol Tablet) 19:15 Clear Liq Diet DIET 04/09/25 Transmitted Breakfast Maintain Bed Rest CELINA 04/08/25 In Process 19:04 Sequential CELINA 04/08/25 In Process Compression Device Urine Bacterial KANU 04/08/25 In Process Culture 19:04 Free T3 LAB 04/08/25 In Process 19:04 Free T4 (Free LAB 04/08/25 In Process Thyroxine) 19:04 * Coordinator Of Online Programs Consultation CONS 04/08/25 Transmitted 19:04 Magnesium Sulfate PHA 04/08/25 Logged 1gm/100ml 19:30 Problem List: (1) UTI in (2) Abdominal pain (3) Fever, unspecified (4) Thyroid disease (5) Nausea and vomiting during (6) Pyelonephritis affecting Date of Service: Apr 08, 2025 Billing Provider: JAD WATKINS DNP Common Visit Codes: [id number] INP/OBS CARE (HIGH) JAD WATKINS DNP Apr 08, 2025 19:43
[2025-04-08] MEDS ORDERED: NITROGLYCERIN 0.4 MG SL TAB SL PRN (19:45)
[2025-04-08 20:20] LABS: Free T3 2.48 pg/mL (2.3-4.2); Free T4 (Free Thyroxine) 0.83 ng/dL (0.89-1.76)
[2025-04-08 21:24] VITALS: PULSE 110
[2025-04-08] MEDS: SODIUM CHLORIDE 0.9% 1,000 ML IV SCH (22:11)
[2025-04-08] MEDS: MAGNESIUM SULFATE 1GM/100ML 100 ML IV ONE (22:11)
[2025-04-08 23:15] VITALS: BP 135/80; PULSE 110; RESP 18; TEMP 97.8; O2SAT 99
[2025-04-09] VITALS (8 sets, daily range): BP systolic 112–128; BP diastolic 69–79; PULSE 95–117; RESP 16–98; TEMP 97.9–99.4; O2SAT 97–98
[2025-04-09 05:53] LABS: Hematocrit 29.8 % (36.0-46.0); Hemoglobin 10.1 g/dL (12.2-16.2); Mean Corpuscular Hemoglobin 28.5 pg (28.0-32.0); Mean Corpuscular Volume 84.4 fL (80.0-100.0); Nucleated Red Blood Cells % 0.1 %
[2025-04-09 06:28] LABS: Alanine Aminotransferase 23 U/L (7-40); Albumin 3.5 g/dL (3.2-4.8); Alkaline Phosphatase 72 U/L (46-116); Anion Gap 13 (5-15); Carbon Dioxide 21 mmol/L (20-31); Chloride 102 mmol/L (98-107); Total Protein 6.3 g/dL (5.7-8.2)
[2025-04-09 06:29] LABS: Bilirubin, Total 0.6 mg/dL (0.2-1.0)
[2025-04-09 06:45] LABS: BUN/Creatinine Ratio 10.9 (10.0-20.0); Blood Urea Nitrogen < 5 mg/dL (9-23); Calcium 8.4 mg/dL (8.7-10.4); Glucose 108 mg/dL (74-106); Potassium 3.4 mmol/L (3.5-5.1); Sodium 136 mmol/L (136-145)
[2025-04-09] MEDS: SODIUM CHLORIDE 0.9% 1,000 ML IV SCH (13:00)
--- NOTE | 2025-04-09 13:57 | DVHPN2 ---
Subjective Patient continues to have intermittent nausea and vomiting Reviewed: Care Plan, H&P, Labs, Medications Changes from previous H/P or p: No Changes General: Per HPI Eyes: No Pain, No Vision change, No Conjunctivae inflammation, No Eyelid inflammation, No Other, No Redness ENT: No Ear pain, No Ear discharge, No Nose pain, No Nose discharge, No Nose congestion, No Mouth pain, No Mouth swelling, No Throat pain, No Throat swelling, No Other Cardiovascular: No Chest Pain, No Palpitations, No Orthopnea, No Paroxysmal Noc. Dyspnea, No Edema, No Lt Headedness, No Other Respiratory: No Cough, No Dry, No Shortness of breath, No SOB with excertion, No Wheezing, No Hemoptysis, No Pleuritic Pain, No Sputum, No Other Gastrointestinal: Nausea, Vomiting, Abdominal Pain; No Diarrhea, No Constipation, No Melena, No Hematochezia, No Other Genitourinary: No Dysuria, No Frequency, No Incontinence, No Hematuria, No Retention, No Other Musculoskeletal: No other, No neck pain, No shoulder pain, No arm pain, No back pain, No hand pain, No leg pain, No foot pain Skin: No Rash, No Lesions, No Jaundice, No Bruising, No Other Objective Vitals Vital Signs Date Time Temp Pulse Resp B/P (MAP) Pulse Ox O2 Delivery O2 Flow Rate FiO2 04/09/25 12:55 98.7 109 20 128/79 (95) 98 98.7 04/09/25 08:00 Room Air* 0 21 Intake/Output Intake and Output 04/09/25 07:00 Intake Total 300 ml Balance 300 ml Intake Oral 300 ml # Voids 2 General Appearance: Alert, Oriented X3, Cooperative, mild distress HEENT: Atraumatic, PERRLA Lungs: Clear to auscultation, Normal air movement Cardiovascular: Normal S1, Normal S2 Abdomen: Normal bowel sounds, Soft, No tenderness Musculoskeletal: Normal sensory function, Normal motor function Skin: Dry, Intact Psych/Mental Status: Mental status NL, Mood NL Medications Current Medications Medications Dose Ordered Sig/Gisela Route Start Time Stop Time Status Last Admin Dose Admin Ceftriaxone Sodium 50 ml @ 100 mls/hr DAILY@09 IV 04/09/25 09:00 04/09/25 09:06 100 MLS/HR Ondansetron HCl 4 mg Q4HP PRN IV 04/08/25 19:15 Docusate Sodium 100 mg BIDPRN PRN PO 04/08/25 19:15 Acetaminophen 650 mg Q6HP PRN PO 04/08/25 19:15 Nitroglycerin 0.4 mg Q5MINP PRN SL 04/08/25 19:45 Laboratory Results Laboratory Tests 04/09/25 05:30 Chemistry Test 04/08/25 14:14 04/09/25 05:30 Albumin 4.0 g/dL (3.2-4.8) 3.5 g/dL (3.2-4.8) Calcium Level 9.2 mg/dL (8.7-10.4) 8.4 mg/dL (8.7-10.4) L Magnesium Level 1.5 mg/dL (1.6-2.6) L Total Protein 7.3 g/dL (5.7-8.2) 6.3 g/dL (5.7-8.2) LFT Test 04/08/25 14:14 04/09/25 05:30 Alanine Aminotransferase (ALT) 31 U/L (7-40) 23 U/L (7-40) Alkaline Phosphatase 81 U/L (46-116) 72 U/L (46-116) Aspartate Amino Transferase (AST) 18 U/L (13-40) 17 U/L (13-40) Total Bilirubin 0.6 mg/dL (0.2-1.0) 0.6 mg/dL (0.2-1.0) HgA1c, TSH Test 04/08/25 14:14 Thyroid Stimulating Hormone (TSH) 0.45 uIU/mL (0.55-4.78) L Urinalysis Test 04/08/25 14:08 Urine Color Colorless (Yellow) Urine Clarity Turbid (Clear) H Urine pH 7.0 (5.0-9.0) Urine Specific [place] 1.015 (1.001-1.035) Urine Protein 1+ (Negative) H Urine Ketones Negative (Negative) Urine Blood Trace /uL (Negative) H Urine Nitrite 2+ (Negative) H Urine Bilirubin Negative (Negative) Urine Urobilinogen Normal mg/dL (Negative) Urine Leukocyte Esterase 3+ /uL (Negative) Urine RBC 7 /hpf (0 - 4) Urine Microscopic WBC 126 /HPF (0-5) H Urine Squamous Epithelial Cells Few /hpf (<5) Urine Bacteria Few /hpf (None Seen) H Urine Glucose Normal mg/dL (Normal) Microbiology Microbiology Date/Time Source Procedure Growth Status 04/08/25 14:08 Voided Urine Urine Culture - Preliminary Resulted Labs and/or images reviewed: Labs reviewed by me, Image(s) reviewed by me Assessment/Plan Assessment/Plan Impression: -complicated cystitis with failure of oral antibiotics -sepsis - at 24 weeks gestation -obesity -hypokalemia -diarrhea Plan: -repeat urine culture given 1st culture was contaminated -patient continues to be tachycardic, continue IV fluids with potassium replacement -continue IV Rocephin -add Florastor - heart tones Q shift -OBGYN consultation -antiemetics -repeat labs in a.m. Total time spent with patient discussing and formulating plan of care: 35 minutes. This medical document was created using an electronic medical record system with [employer] dictation system. Although this document has been carefully reviewed, there may still be some phonetic and typographical errors. These areas are purely typographical due to imperfections of the software programs, and do not reflect any compromise in the patient's medical care. Plan discussed with: Patient, Other (RN) My Orders Orders - LIZET VILLAFANA NP Procedure Category Date Status Time Sod Chl 0.9%/ Kcl PHA 04/09/25 In Process 40meq 13:45 Basic Metabolic Panel LAB 04/10/25 Verified 04:00 Urine Bacterial KANU 04/09/25 Uncollected Culture 13:53 Date of Service: Apr 09, 2025 Billing Provider: LIZET VILLAFANA NP Common Visit Codes: [id number] INP/OBS CARE(HIGH) LIZET VILLAFANA NP Apr 09, 2025 13:57
[2025-04-09] MEDS: FLORASTOR (S. BOULARDII) 250 MG CAP PO SCH (14:55)
[2025-04-09] MEDS: SOD CHL 0.9%/ KCL 40MEQ 1,000 ML IV ONE (14:55)
[2025-04-09 20:42] LABS: Urine Protein, UAD Negative (Negative)
[2025-04-10 01:00] VITALS: BP 122/75; PULSE 99; RESP 16; TEMP 98.1; O2SAT 100
[2025-04-10 05:00] VITALS: BP 104/62; PULSE 91; RESP 16; TEMP 98; O2SAT 99
[2025-04-10 07:02] LABS: Anion Gap 12 (5-15); Carbon Dioxide 21 mmol/L (20-31); Chloride 104 mmol/L (98-107); Sodium 137 mmol/L (136-145)
[2025-04-10 07:08] LABS: Glucose 83 mg/dL (74-106)
[2025-04-10 07:11] LABS: BUN/Creatinine Ratio 11.4 (10.0-20.0); Blood Urea Nitrogen < 5 mg/dL (9-23); Calcium 8.6 mg/dL (8.7-10.4); Potassium 3.4 mmol/L (3.5-5.1)
[2025-04-10] MEDS: POTASSIUM CHLORIDE 40 MEQ, LIDOCAINE 1% (LOCAL ANESTH.) 4 ML in SODIUM CHL 0.9% 250 ML IV ONE (07:30)
[2025-04-10 08:00] VITALS: PULSE 91; RESP 18; O2SAT 98
[2025-04-10 09:00] VITALS: BP 116/80; PULSE 91; RESP 20; TEMP 98; O2SAT 97
--- NOTE | 2025-04-10 09:03 | DVHINCON2 ---
Date of service: Apr 09, 2025 Referring Physician HOSPITALIST Reason for Consultation PYELO AND PREG History of Present Illness PT IS ADMITTED FOR PYELONEPHRITIS ,PT HAD RECENT UTI BUT SHE PRESENTED WITH FLANK PAIIN . PT DENIES UCS,ROM OR VAG BLEEING Past Medical History NONE Past Surgical History CSX2,CHOLECYSTECTOMY Family History NA Social History 2CS,ONE SAB Patient Family History: Patient reports no known family medical history. Allergies: Coded Allergies: Morphine (Verified Allergy, Unknown, 05/04/24) Home Meds Active Scripts Cephalexin (KEFLEX CAPSULE) 250 Mg Cp, 1 CAP PO QID for 7 Days, #28 CAP Prov:BRYCE YUSUF MD 06/17/24 Current Medications Current Medications Medications (Trade) Dose Ordered Sig/Gisela Route PRN Reason Start Time Stop Time Status Last Admin Ceftriaxone Sodium 50 ml @ 100 mls/hr DAILY@09 IV 04/09/25 09:00 04/09/25 09:06 Sodium Chloride 1,000 ml @ 100 mls/hr Q10H IV 04/09/25 12:30 04/09/25 13:42 DC 04/09/25 13:00 Saccharomyces Boulardii (Florastor) 250 mg DAILY PO 04/09/25 14:00 04/09/25 14:55 Review of Systems Constitutional: POS fever AND chill, NO weight loss HEENT: no eye pain, no hearing loss, no oral lesion, no scleral icterus Heart: no chest pain, no chest pressure Lung: no cough, no dyspnea with exertion Abdomen: see HPI : POS FOR pain with urination, normal appearing urine Musculoskeletal: no joint pain, no muscle pain Neurological: no seizure, no loss of sensation, no weakness in extremities Pysch: no depression, no anxiety Derm: no rash, no jaundice Vital Signs Vital Signs Date Time Temp Pulse Resp B/P (MAP) Pulse Ox O2 Delivery O2 Flow Rate FiO2 04/10/25 05:00 98.0 91 16 104/62 (76) 99 98.0 04/09/25 20:00 Room Air* 0 21 Physical Exam SKIN: NL HEENT: NL NECK: NL CARDIAC: RRR PULMONARY: CTA ABDOMEN: SOFT,POS FH,GRAVID ,24 WKS MUSCULOSKELETAL: POS CVA TENDERNESS EXT - NOCCE Labs/Diagnostic Data Labs Test 04/10/25 05:18 04/09/25 14:47 10/4/25 05:30 04/08/25 16:50 Range/Units Sodium Level 137 136-145 mmol/L Potassium Level 3.4 L 3.5-5.1 mmol/L Chloride Level 104 98-107 mmol/L Carbon Dioxide Level 21 20-31 mmol/L Anion Gap 12 5-15 Blood Urea Nitrogen < 5 L 9-23 mg/dL Creatinine 0.44 L 0.550-1.02 mg/dL Glomerular Filtration Rate Calc 130 >90 mL/min BUN/Creatinine Ratio 11.4 10.0-20.0 Serum Glucose 83 74-106 mg/dL Calcium Level 8.6 L 8.7-10.4 mg/dL Urine Color Colorless Yellow Urine Clarity Clear Clear Urine pH 7.5 5.0-9.0 Urine Specific [place] 1.006 1.001-1.035 Urine Protein Negative Negative Urine Ketones Negative Negative Urine Blood Negative Negative /uL Urine Nitrite Negative Negative Urine Bilirubin Negative Negative Urine Urobilinogen Normal Negative mg/dL Urine Leukocyte Esterase Negative Negative /uL Urine RBC None seen 0 - 4 /hpf Urine Microscopic WBC 2 0-5 /HPF Urine Squamous Epithelial Cells Few <5 /hpf Urine Bacteria Few H None Seen /hpf Urine Glucose Normal Normal mg/dL White Blood Count 9.7 4.4-10.8 10^3/uL Red Blood Count 3.53 L 4.0-5.20 10^6/uL Hemoglobin 10.1 L 12.2-16.2 g/dL Hematocrit 29.8 #L 36.0-46.0 % Mean Corpuscular Volume 84.4 80.0-100.0 fL Mean Corpuscular Hemoglobin 28.5 28.0-32.0 pg Mean Corpuscular Hemoglobin Concent 33.8 32.0-36.0 g/dL Red Cell Distribution Width 14.5 H 11.8-14.3 % Platelet Count 295 140-450 10^3/uL Mean Platelet Volume 7.6 6.9-10.8 fL Neutrophils (%) (Auto) 82.8 H 37.0-80.0 % Lymphocytes (%) (Auto) 7.2 L 10.0-50.0 % Monocytes (%) (Auto) 9.7 0.0-12.0 % Eosinophils (%) (Auto) 0.1 0.0-7.0 % Basophils (%) (Auto) 0.2 0.0-2.0 % Neutrophils # (Auto) 8.1 1.6-8.6 10 ^3/uL Lymphocytes # (Auto) 0.7 0.4-5.4 10 ^3/uL Monocytes # (Auto) 0.9 0-1.3 10 ^3/uL Eosinophils # (Auto) 0 0-0.8 10 ^3/uL Basophils # (Auto) 0 0-0.2 10 ^3/uL Nucleated Red Blood Cells 0.1 % Total Bilirubin 0.6 0.2-1.0 mg/dL Aspartate Amino Transferase (AST) 17 13-40 U/L Alanine Aminotransferase (ALT) 23 7-40 U/L Alkaline Phosphatase 72 46-116 U/L Total Protein 6.3 5.7-8.2 g/dL Albumin 3.5 3.2-4.8 g/dL Beta HCG, Quantitative 9524.4 H 1.5-4.2 mIU/mL Test 04/08/25 14:14 04/08/25 14:08 Range/Units Magnesium Level 1.5 L 1.6-2.6 mg/dL Thyroid Stimulating Hormone (TSH) 0.45 L 0.55-4.78 uIU/mL Free Thyroxine (T4) Calculated 0.83 L 0.89-1.76 ng/dL Free Triiodothyronine (T3) pg/mL 2.48 2.3-4.2 pg/mL Urine Opiates Screen Neg NEGATIVE Urine Fentanyl Screen Neg NEGATIVE Urine Barbiturates Screen Neg NEGATIVE Urine Phencyclidine Screen Neg NEGATIVE Urine Amphetamines Screen Neg NEGATIVE Urine Benzodiazepines Screen Neg NEGATIVE Urine Cocaine Screen Neg NEGATIVE Urine Cannabinoids Screen Neg NEGATIVE Microbiology Date/Time Source Procedure Growth Status 04/08/25 14:08 Voided Urine Urine Culture - Preliminary Resulted Primary Diagnosis PYELONEPHRITS IUP AT 23 WKS HX OF CSX2 Plan PT IS ON ABX AND IVF MAY DC HOME ON MACROBID FU WITH ME SCHED Plan discussed with: Patient Visit Coding OBGYN Date of Service: Apr 09, 2025 Billing Provider: SAL VIRGEN DO COMPENSATION PROGRAMS MANAGER Common Visit Codes: [id number] INP/OBS CARE(HIGH) COMPENSATION PROGRAMS MANAGER Consultation Codes: [id number] CONSULT <110MIN SAL VIRGEN DO Apr 10, 2025 09:03
--- NOTE | 2025-04-10 09:06 | DVHPN2 ---
Chief Complaints Patient reports: No new complaints, Feels better Nursing reports: No new complaints Objective Vitals Vital Signs Date Time Temp Pulse Resp B/P (MAP) Pulse Ox O2 Delivery O2 Flow Rate FiO2 04/10/25 05:00 98.0 91 16 104/62 (76) 99 98.0 04/09/25 20:00 Room Air* 0 21 Medications Current Medications Medications (Trade) Dose Ordered Sig/Gisela Route PRN Reason Start Time Stop Time Status Last Admin Saccharomyces Boulardii (Florastor) 250 mg DAILY PO 04/09/25 14:00 04/09/25 14:55 Lungs: Normal Cardiovascular: Normal Abdominal: Soft Extremities: Normal Studies Laboratory Tests 04/10/25 05:18 04/09/25 05:30 Test 04/10/25 05:18 Range/Units Serum Glucose 83 74-106 mg/dL Ass/Plan Assessment PYELO RESOLVED IUP AT PREG 23 WKS Plan MAY DC HOME ON MACROBID 100MG ONE BID [id number] Visit Coding OBGYN Date of Service: Apr 10, 2025 Billing Provider: SAL VIRGEN DO DIE TRY OUT WORKER Common Visit Codes: [id number] INP/OBS CARE(HIGH) SAL VIRGEN DO Apr 10, 2025 09:06
[2025-04-10] MEDS: POTASSIUM EFFERVESENT TAB 25 MEQ PO ONE (10:46)
[2025-04-10 13:00] VITALS: BP 114/75; PULSE 99; RESP 16; TEMP 98.2; O2SAT 97
[2025-04-10] MEDS ORDERED: NITR-87 PO (13:00)
--- NOTE | 2025-04-10 13:00 | DVHDS2 ---
Discharge Summary Date of Admission Apr 08, 2025 at 19:42 Date of Discharge: Apr 10, 2025 Admitting Diagnosis UTI and Labs/Diagnostic Data: Laboratory Results Test 04/10/25 05:18 04/09/25 14:47 04/09/25 05:30 04/08/25 16:50 Sodium Level 137 mmol/L (136-145) Potassium Level 3.4 mmol/L (3.5-5.1) Chloride Level 104 mmol/L (98-107) Carbon Dioxide Level 21 mmol/L (20-31) Anion Gap 12 (5-15) Blood Urea Nitrogen < 5 mg/dL (9-23) Creatinine 0.44 mg/dL (0.550-1.02) Glomerular Filtration Rate Calc 130 mL/min (>90) BUN/Creatinine Ratio 11.4 (10.0-20.0) Serum Glucose 83 mg/dL (74-106) Calcium Level 8.6 mg/dL (8.7-10.4) Urine Color Colorless (Yellow) Urine Clarity Clear (Clear) Urine pH 7.5 (5.0-9.0) Urine Specific [place] 1.006 (1.001-1.035) Urine Protein Negative (Negative) Urine Ketones Negative (Negative) Urine Blood Negative /uL (Negative) Urine Nitrite Negative (Negative) Urine Bilirubin Negative (Negative) Urine Urobilinogen Normal mg/dL (Negative) Urine Leukocyte Esterase Negative /uL (Negative) Urine RBC None seen /hpf (0 - 4) Urine Microscopic WBC 2 /HPF (0-5) Urine Squamous Epithelial Cells Few /hpf (<5) Urine Bacteria Few /hpf (None Seen) Urine Glucose Normal mg/dL (Normal) White Blood Count 9.7 10^3/uL (4.4-10.8) Red Blood Count 3.53 10^6/uL (4.0-5.20) Hemoglobin 10.1 g/dL (12.2-16.2) Hematocrit 29.8 % (36.0-46.0) Mean Corpuscular Volume 84.4 fL (80.0-100.0) Mean Corpuscular Hemoglobin 28.5 pg (28.0-32.0) Mean Corpuscular Hemoglobin Concent 33.8 g/dL (32.0-36.0) Red Cell Distribution Width 14.5 % (11.8-14.3) Platelet Count 295 10^3/uL (140-450) Mean Platelet Volume 7.6 fL (6.9-10.8) Neutrophils (%) (Auto) 82.8 % (37.0-80.0) Lymphocytes (%) (Auto) 7.2 % (10.0-50.0) Monocytes (%) (Auto) 9.7 % (0.0-12.0) Eosinophils (%) (Auto) 0.1 % (0.0-7.0) Basophils (%) (Auto) 0.2 % (0.0-2.0) Neutrophils # (Auto) 8.1 10 ^3/uL (1.6-8.6) Lymphocytes # (Auto) 0.7 10 ^3/uL (0.4-5.4) Monocytes # (Auto) 0.9 10 ^3/uL (0-1.3) Eosinophils # (Auto) 0 10 ^3/uL (0-0.8) Basophils # (Auto) 0 10 ^3/uL (0-0.2) Nucleated Red Blood Cells 0.1 % Total Bilirubin 0.6 mg/dL (0.2-1.0) Aspartate Amino Transferase (AST) 17 U/L (13-40) Alanine Aminotransferase (ALT) 23 U/L (7-40) Alkaline Phosphatase 72 U/L (46-116) Total Protein 6.3 g/dL (5.7-8.2) Albumin 3.5 g/dL (3.2-4.8) Beta HCG, Quantitative 9524.4 mIU/mL (1.5-4.2) Test 04/08/25 14:14 04/08/25 14:08 Magnesium Level 1.5 mg/dL (1.6-2.6) Thyroid Stimulating Hormone (TSH) 0.45 uIU/mL (0.55-4.78) Free Thyroxine (T4) Calculated 0.83 ng/dL (0.89-1.76) Free Triiodothyronine (T3) pg/mL 2.48 pg/mL (2.3-4.2) Urine Opiates Screen Neg (NEGATIVE) Urine Fentanyl Screen Neg (NEGATIVE) Urine Barbiturates Screen Neg (NEGATIVE) Urine Phencyclidine Screen Neg (NEGATIVE) Urine Amphetamines Screen Neg (NEGATIVE) Urine Benzodiazepines Screen Neg (NEGATIVE) Urine Cocaine Screen Neg (NEGATIVE) Urine Cannabinoids Screen Neg (NEGATIVE) Other Laboratory Tests 04/10/25 05:18 04/09/25 05:30 Brief Hx & Hospital Course: History of Present Illness The patient is a 34-year-old female AB1 who presented to [facility] ED with complaint of abdominal pain. Patient reports she has been experiencing abdominal pain radiating to her back, associated with body chills, nausea, episode of vomiting, getting worse that prompted this visit. Patient was seen at this ED on 03/25/25 for similar complaint, diagnosed with acute cystitis and prescribed Keflex 250mg BID x 7 days in which she finished course, reporting symptoms then resolved. Patient was seen and evaluated in the ED, laboratory data shows WBC 11.6, hemoglobin 11.4, hematocrit 33.6, platelets 338, sodium 136, potassium 3.6, BUN 5, creatinine 0.53, GFR 124, glucose 81, calcium 9.2, magnesium 1.5, TSH 0.45, hCG 9524.4, blood pressure 116/66, heart rate 124, temperature 100.9 F, O2 saturation 98% on room air. Obstetric ultrasound revealing IUP single live fetus at 24 weeks 2 days AUA corresponding to an MARIEL of July 27, 2025. Please see medication orders section in the computer. On my assessment, patient denied chest pain, no headache, no dizziness, no diaphoresis, no shortness of breaths, no abdominal pain at this moment, no diarrhea, nausea, vomiting, fever, or chills. Patient was admitted for further evaluation and medical management. Course of hospitalization: Patient was started on IV Rocephin, treated with IV hydration as well as potassium replacement. OBGYN consultation was obtained. Patient is now tolerating oral intake without any more nausea and vomiting. Patient will be discharged home on Macrobid 100 mg p.o. b.i.d. times 10 days. She has been established appointment this coming with her OB doctor. Questions answered. Physical examination General: Alert and Oriented x3. No acute distress. Well-nourished. Eyes: EOMI. Anicteric. HENT: Moist mucous membranes. Lungs: Clear to auscultation bilaterally. No accessory muscle use. Cardiovascular: Regular rate and rhythm. No murmur. No JVD. Abdomen: Soft, non-tender and non-distended. No palpable masses. Extremities: No edema. Non-tender. Skin: No rashes or lesions. Warm. Neurologic: No focal neurological deficits. CN II-XII grossly intact, but not individually tested. Psychiatric: Cooperative. Appropriate mood and affect. Total time spent with patient discussing and formulating plan of care: 35 minutes. This medical document was created using an electronic medical record system with [employer] dictation system. Although this document has been carefully reviewed, there may still be some phonetic and typographical errors. These areas are purely typographical due to imperfections of the software programs, and do not reflect any compromise in the patient's medical care. Condition at Discharge: Fair Final Diagnosis/Problems List Complicated Cystitis in setting of Impression: -complicated cystitis with failure of oral antibiotics -sepsis - at 24 weeks gestation -obesity -hypokalemia -diarrhea Discharge Disposition: Home Discharge Instruct/Medications Diet: Regular Activity: No Restrictions, As Tolerated Follow Up/Referral: Follow up with established OBGYN appointment this coming Medications: Macrobid 100 mg p.o. b.i.d. times 10 days Scheduled Cephalexin (Keflex Capsule), 1 CAP PO QID 36 Discharge Statement: "Patient was advised to return to the ER or call 911 if any headaches, dizziness, shortness of breath, chest pain, abdominal pain, bleeding, fevers, or worsening of medical condition. Patient was counseled about treatment plan, medications, possible side effects, patientverbalized understanding. All questions were answered to the best of my ability. This discharge took greater then 30 minutes in planning, reviewing documentation, counseling the patient, and discussing with other team members." ASSESSMENT ASSESSMENT Assessment Complicated Cystitis in setting of Date of Service: Apr 10, 2025 Billing Provider: LIZET VILLAFANA NP Common Visit Codes: 89542-UAH/OBS DISCH DAY >30min LIZET VILLAFANA NP Apr 10, 2025 13:00
== END 2025-04-10 14:46 | disposition home or self-care (01) | DRG 566 ==
LOC: ER 12:57 → OVERFLOW 19:42 → TELE-WESTW 21:13
PROVIDERS: ADMIT Nurse Practitioner Family; ATTEND Nurse Practitioner Family
DX: O98.812 Other maternal infectious and parasitic diseases complicating pregnancy, second trimester (principal); A41.9 Sepsis, unspecified organism; O23.02 Infections of kidney in pregnancy, second trimester; E07.9 Disorder of thyroid, unspecified; E87.6 Hypokalemia; O99.212 Obesity complicating pregnancy, second trimester; O99.282 Endocrine, nutritional and metabolic diseases complicating pregnancy, second trimester; O23.12 Infections of bladder in pregnancy, second trimester; N30.00 Acute cystitis without hematuria; Z88.5 Allergy status to narcotic agent; Z3A.24 24 weeks gestation of pregnancy
CPT/HCPCS: 36415; 76805; 76817; 80048; 80053; 80307; 81001; 83735; 84439; 84443; 84481; 84702; 85025; 87086; 93005; 99291; G0378; J2003

== ENCOUNTER 2025-05-31 08:57 | Observation (INO) | payer MEDICAID ==
[~2025-05-31 08:57] MED LIST changes: +NITR-87 PO
[2025-05-31] MEDS ORDERED: NITR-52 PO (10:03)
[2025-05-31] MEDS ORDERED: PREN-96 PO (10:04)
--- NOTE | 2025-05-31 10:19 | DVHDS2 ---
Physician Discharge Progress N Final Diagnosis: uti,vag bleeding 30wks Operations or Procedures: Operations or Procedures nst reactive reviwed,sono Condition on Discharge: Good Disposition: Home Discharge Instructions: Diet: Regular Activity: Light activity Medications: macrobid Follow Up Care: Specialist: 1w Discharge Statement: "Patient was advised to return to the ER or call 911 if any headaches, dizziness, shortness of breath, chest pain, abdominal pain, bleeding, fevers, or worsening of medical condition. Patient was counseled about treatment plan, medications, possible side effects, patientverbalized understanding. All questions were answered to the best of my ability. This discharge took greater then 30 minutes in planning, reviewing docume ntation, counseling the patient, and discussing with other team members." Visit Coding OBGYN Date of Service: May 31, 2025 Billing Provider: SAL VIRGEN DO [employer]ACITY PLANNING MANAGER Common Visit Codes: 32407-GBCQYBD OBS CARE (HIGH) CAPACITY PLANNING MANAGER Procedure Codes: 08363-79- NON-STRESS TEST SAL VIRGEN DO May 31, 2025 10:19
--- NOTE | 2025-05-31 10:52 | DVH ---
LIMITED OB ULTRASOUND > 14 WKS: HISTORY: Vaginal bleeding TECHNIQUE: Multiple real-time grayscale images of the gravid uterus with duplex Doppler color flow and M-mode spectral analysis. Transvaginal imaging was performed to evaluate the cervix. COMPARISON: US OB ULTRASOUND COMP GTR 14 WKS on DOS: 04/08/25, US OB TRANS VAGINAL US on DOS: 04/08/25, US OB ULTRASOUND COMP LESS 14WKS on DOS: 05/19/24 FINDINGS: IUP single live fetus with heart rate of 143 beats per minute. FAINA 13.9 cm MVP 6.0 cm Cephalic presentation Grade 1 placenta without previa or abruption, in posterior position. Transvaginal imaging of the cervix demonstrates cervical length of 4.2 cm. There is a small amount of fluid within the endocervical canal, with the fluid measuring up to 0.3 cm in width. IMPRESSION: 1. IUP single live fetus with heart rate of 143 beats per minute. 2. Fluid within the endocervical canal measuring up to 0.3 cm in width. Cervical length measures 4.2 cm. 3. No sonographic evidence of placenta previa or abruption. 4. Additional findings as described above.
== END 2025-05-31 11:08 | disposition home or self-care (01) ==
LOC: UNDOADMOB 08:57 → LDRP 08:57
PROVIDERS: ADMIT Obstetrics & Gynecology; ATTEND Obstetrics & Gynecology
DX: O23.43 Unspecified infection of urinary tract in pregnancy, third trimester (principal); N39.0 Urinary tract infection, site not specified; O46.93 Antepartum hemorrhage, unspecified, third trimester; Z3A.30 30 weeks gestation of pregnancy; Z98.890 Other specified postprocedural states
CPT/HCPCS: 59025; 76815; 76817; 81002; 94760; G0378